=== PATIENT | male | born 1995 | race Caucasian/White ===

== ENCOUNTER 2017-04-05 08:53 | Emergency (ER) | payer OTHER ==
[2017-04-05 09:13] VITALS: BP 103/68; PULSE 80; RESP 18; TEMP 98.9; O2SAT 100; BMI 21.7
--- NOTE | 2017-04-05 09:41 | ED PDOC ---
Arrival/HPI - General Chief Complaint: ENT Problem Time Seen by Provider: 04/05/17 09:32 Historian: Patient - History of Present Illness Narrative History of Present Illness (Text): 04/05/17 09:36 21 y/o male, no pmh, nkda, c/o throat pain and headache started this morning. Pt. stated that he doesn't have any coughing or back pain which the patient disagreed with the triage. Aching throat pain, painful to swallow, no coughing , no night sweat, no other medical or psychological complaints. Past Medical History - Provider Review Nursing Documentation Reviewed: Yes - Infectious Disease Hx of Infectious Diseases: None - Tetanus Immunization Tetanus Immunization: Up to Date - Psychiatric Hx Substance Use: No - Anesthesia Hx Anesthesia: No Family/Social History - Physician Review Nursing Documentation Reviewed: Yes Family/Social History: Unknown Family HX Smoking Status: Never Smoked Hx Alcohol Use: No Hx Substance Use: No Allergies/Home Meds Allergies/Adverse Reactions: Allergies No Known Allergies Allergy (Verified 04/05/17 09:13) Review of Systems - Review of Systems Constitutional: absent: Fatigue, Fevers Eyes: absent: Vision Changes ENT: Sore Throat. absent: Hearing Changes, Rhinorrhea Respiratory: absent: SOB, Cough, Sputum Cardiovascular: absent: Chest Pain Gastrointestinal: absent: Abdominal Pain, Diarrhea, Nausea, Vomiting Musculoskeletal: absent: Arthralgias, Back Pain, Neck Pain, Joint Swelling, Myalgias Skin: absent: Rash, Pruritis, Skin Lesions Neurological: Headache. absent: Dizziness, Focal Weakness, Gait Changes, Speech Changes, Facial Droop Physical Exam Vital Signs Reviewed: Yes Vital Signs Temp Pulse Resp BP Pulse Ox 04/05/17 09:09 98.9 F 80 18 103/68 100 Temperature: Afebrile Blood Pressure: Normal Pulse: Regular Respiratory Rate: Normal Appearance: Positive for: Well-Appearing, Non-Toxic, Comfortable Pain Distress: Moderate Mental Status: Positive for: Alert and Oriented X 3 - Systems Exam Head: Present: Atraumatic, Normocephalic Pupils: Present: PERRL Extroacular Muscles: Present: EOMI Conjunctiva: Present: Normal Ears: Present: NORMAL TM, Normal Canal. No: Erythema Mouth: Present: Moist Mucous Membranes Pharnyx: Present: ERYTHEMA, EXUDATE. No: TONSILS ENLARGED, Peritonsilar Swelling, Uvular Deviation, Muffled/Hoarse Voice, Strider, Soft Palate/Uvular Edema Nose (External): Present: Atraumatic. No: Abrasion, Contusion, Laceration Nose (Internal): Present: Normal Inspection, No Active Bleeding, Moist. No: Rhinorrhea, Septal Hematoma Neck: Present: Normal Range of Motion, Trachea Midline. No: Meningeal Signs, MIDLINE TENDERNESS, Paraspinal Tenderness, Lymphadenopathy Respiratory/Chest: Present: Clear to Auscultation, Good Air Exchange. No: Respiratory Distress, Accessory Muscle Use, Wheezes, Decreased Breath Sounds, Rales, Retracting, Rhonchi, Tachypneic, Tender to Palpation, Other Cardiovascular: Present: Regular Rate and Rhythm, Normal S1, S2. No: Murmurs Abdomen: Present: Normal Bowel Sounds. No: Tenderness, Distention, Peritoneal Signs Back: Present: Normal Inspection Upper Extremity: Present: Normal Inspection. No: Cyanosis, Edema Lower Extremity: Present: Normal Inspection. No: Edema Neurological: Present: GCS=15, Speech Normal, Motor Func Grossly Intact, Gait Normal, Memory Normal Skin: Present: Warm, Dry, Normal Color. No: Rashes Psychiatric: Present: Alert, Oriented x 3, Normal Insight, Normal Concentration Medical Decision Making ED Course and Treatment: 04/05/17 09:39 -amoxicillin -motrin -Pt. has no headache now in the ER, eating and drinking well. -Discharge home with amoxicillin, motrin, stay hydrated, bed rest, salt water gargling, soft food diet, follow up with your own pmd and ENT within 2 days, return to the ER for any new or worsening signs or symptoms. - Medication Orders Current Medication Orders: Discontinued Medications Amoxicillin (Amoxil 500 Mg Cap) 500 mg PO STAT STA PRN Reason: Protocol Stop: 04/05/17 09:33 Ibuprofen (Motrin Tab) 600 mg PO STAT STA Stop: 04/05/17 09:33 - PA / EVIDENCE CUSTODIAN / Resident Statement MD/DO has reviewed & agrees with the documentation as recorded. Disposition/Present on Arrival - Present on Arrival Any Indicators Present on Arrival: No History of DVT/PE: No History of Uncontrolled Diabetes: No Urinary Catheter: No History of Decub. Ulcer: No History Surgical Site Infection Following: None - Disposition Have Diagnosis and Disposition been Completed?: Yes Diagnosis: Pharyngitis Disposition: HOME/ ROUTINE Disposition Time: :41 Patient Plan: Discharge Condition: GOOD Additional Instructions: Discharge home with amoxicillin, motrin, stay hydrated, bed rest, salt water gargling, soft food diet, follow up with your own pmd and ENT within 2 days, return to the ER for any new or worsening signs or symptoms. Prescriptions: Amoxicillin 500 mg PO TID #30 tab Ibuprofen [Motrin Tab] 600 mg PO QID PRN #25 tab PRN Reason: Other Referrals: Amauri Medina DO [Staff Provider] - Follow up with primary [facility] at [facility] [place] [Outside] - Follow up with primary Forms: SCHOOL NOTE
== END 2017-04-05 10:07 | disposition home or self-care (01) ==
LOC: ED 08:53
DX: J02.9 Acute pharyngitis, unspecified (principal)

== ENCOUNTER 2018-03-28 07:47 | Emergency (ER) | payer OTHER ==
[2018-03-28 07:58] VITALS: RESP 17; BMI 23.7
--- NOTE | 2018-03-28 08:40 | ED PDOC ---
Arrival/HPI - General Chief Complaint: Headache Time Seen by Provider: 03/28/18 07:50 Historian: Patient - History of Present Illness Narrative History of Present Illness (Text): 03/28/18 07:55 Toña Hagen is a 22 year old male who presents to the emergency department complaining of generalized body aches with associated headache and sore throat for the past two days. Patient states that he experiences associated productive cough with "thick" phlegm. Patient took Tylenol yesterday to little relief. Patient notes that he did not get his flu shot this year. Patient denies any vomiting, diarrhea, lack of appetite, fevers, chills, or any other complaints at this time. Time/Duration: < week Symptom Onset: Gradual Symptom Course: Unchanged Activities at Onset: Light Context: Home Past Medical History - Provider Review Nursing Documentation Reviewed: Yes - Infectious Disease Hx of Infectious Diseases: None - Tetanus Immunization Tetanus Immunization: Up to Date - Psychiatric Hx Substance Use: No - Anesthesia Hx Anesthesia: No Family/Social History - Physician Review Nursing Documentation Reviewed: Yes Family/Social History: No Known Family HX Smoking Status: Never Smoked Hx Alcohol Use: Yes Frequency of alcohol use: Socially Hx Substance Use: No Allergies/Home Meds Allergies/Adverse Reactions: Allergies No Known Allergies Allergy (Verified 03/28/18 08:02) Review of Systems - Review of Systems Constitutional: Other (Generalized body aches). absent: Fevers, Night Sweats Eyes: absent: Vision Changes ENT: absent: Hearing Changes Respiratory: Cough, Sputum. absent: SOB Cardiovascular: absent: Chest Pain, SANDRA Gastrointestinal: absent: Abdominal Pain Genitourinary Male: absent: Dysuria, Frequency Musculoskeletal: absent: Arthralgias, Neck Pain Skin: absent: Rash Neurological: Headache. absent: Focal Weakness Endocrine: absent: Diaphoresis Hemo/Lymphatic: absent: Adenopathy Psychiatric: absent: Anxiety, Depression Physical Exam - Physical Exam Narrative Physical Exam (Text): Head: Atraumatic. Normocephalic. Eyes: PERRL. EOMI. Conjunctivae are not pale. ENT: Mucous membranes are moist and intact. Oropharynx is clear and symmetric. No pharyngeal edema or exudates. TMs are clear bilaterally. Neck: Supple. Full ROM. No JVD. No lymphadenopathy. Cardiovascular: Regular rate. Regular rhythm. No murmurs, rubs, or gallops. Distal pulses are 2+ and symmetric. Pulmonary/Chest: No evidence of respiratory distress. Clear to auscultation bilaterally. No wheezing, rales or rhonchi. Abdominal: Soft and non-distended. There is no tenderness. No rebound, guarding, or rigidity. No organomegaly. Good bowel sounds. Back: No CVA tenderness. Extremities: No edema. No cyanosis. No clubbing. Full range of motion in all extremities. No calf tenderness. Skin: Skin is warm and dry. No petechiae. No purpura. No vesicular rash. Neurological: Alert, awake, and oriented. Motor and sensory exam intact. Psychiatric: Good eye contact. Normal interaction, affect, and behavior. Vital Signs Reviewed: Yes Vital Signs Temp Pulse Resp BP Pulse Ox 03/28/18 09:10 98.3 F 89 17 118/57 L 99 03/28/18 07:57 98.9 F 85 17 112/74 100 Temperature: Afebrile Blood Pressure: Normal Pulse: Regular Respiratory Rate: Normal Appearance: Positive for: Well-Appearing, Non-Toxic, Comfortable Pain Distress: None Mental Status: Positive for: Alert and Oriented X 3 Medical Decision Making ED Course and Treatment: 03/28/18 08:41 Impression: 22 year old male complaining of generalized body aches with associated headache , sore throat, and productive cough for the past 2 days. Differential Diagnosis included but are not limited to: Virall Illness vs. Flu vs. pharyngitis vs. bronchitis Plan: -- Reassess and disposition Prior Visits: Notes and results from previous visits were reviewed. Patient was last seen in the emergency department on 04/05/17 for throat pain and headache. Patient was discharge home. Progress Notes: Patient currently with no headache. Afebrile. Nontoxic appearing. Resting comfortably. No focal motor or sensory deficits. No respiratory distress. Abdomen soft and nontender. No meningeal signs. Will d/c with medications. Swallowing without difficulty, no stridor or drooling. Treatment plan reviewed with patient, stressed need for close follow-up for any new or persistent symptoms. - Lab Interpretations Lab Results: Lab Results 03/28/18 08:33: Influenza Typ A,B (EIA) Negative for flu a/b - Medication Orders Current Medication Orders: Discontinued Medications Amoxicillin (Amoxil 500 Mg Cap) 500 mg PO STAT STA PRN Reason: Protocol Stop: 03/28/18 08:48 Last Admin: 03/28/18 09:02 Dose: 500 mg Ibuprofen (Motrin Tab) 600 mg PO STAT STA Stop: 03/28/18 08:48 Last Admin: 03/28/18 09:01 Dose: 600 mg MAR Pain/Vitals Document 03/28/18 09:01 (Rec: 03/28/18 09:02 [id number]) Pain Reassessment Is This A Pain ReAssessment? Yes Sleep Is patient sleeping during reassessment? No Presence of Pain Presence of Pain Yes Pain Scale Used Pain Scale Used Numeric Location Pain Location Body Turntable Worker Description Constant Intensity 5 Scale Used Numeric - Scribe Statement The provider has reviewed the documentation as recorded by the Scribe Jaqui Dumas Provider Scribe Attestation: All medical record entries made by the Scribe were at my direction and personally dictated by me. I have reviewed the chart and agree that the record accurately reflects my personal performance of the history, physical exam, medical decision making, and the department course for this patient. I have also personally directed, reviewed, and agree with the discharge instructions and disposition. Disposition/Present on Arrival - Present on Arrival Any Indicators Present on Arrival: No History of DVT/PE: No History of Uncontrolled Diabetes: No Urinary Catheter: No History of Decub. Ulcer: No History Surgical Site Infection Following: None - Disposition Have Diagnosis and Disposition been Completed?: Yes Diagnosis: Pharyngitis Disposition: HOME/ ROUTINE Disposition Time: 10:00 Patient Plan: Discharge Condition: GOOD Discharge Instructions (ExitCare): Sore Throat, Adult (DC) Additional Instructions: For any fevers, any vomiting, any rash, any difficulty swallowing, any bleeding , any shortness of breath, any headaches, any persistent or worsening of symptoms, get rechecked. Follow-up with your physician in 1-2 days, return to ER for any new, persistent , or worsening of symptoms. Prescriptions: Amoxicillin 500 mg PO BID #13 tablet Referrals: [facility] [place] - Follow up with primary Forms: [employer] (Gabonese), [employer] (Guamanian), WORK NOTE
[2018-03-28 09:16] VITALS: BP 118/57; PULSE 89; TEMP 98.3; O2SAT 99
== END 2018-03-28 09:10 | disposition home or self-care (01) ==
LOC: ED 07:47
DX: J02.9 Acute pharyngitis, unspecified (principal)